=== PATIENT | female | born 1950 | race Caucasian/White ===

== ENCOUNTER → 2019-02-15 | Outpatient (CLI) | payer MEDICARE, OTHER ==
[~2019-02-15] MED LIST: AMBIEN 5 MG TABL5 M1 PO; KEFLEX500 MG PO; TRIAMCINOLONE A15 G1 TP; ZYRTEC10 MG PO
== END ==
LOC: M.RAD 10:00
DX: Z12.31 Encounter for screening mammogram for malignant neoplasm of breast (principal)

== ENCOUNTER → 2019-03-22 | Outpatient (CLI) | payer MEDICARE, OTHER | LOC: M.ULTRA 10:13 | DX: N63.10 Unspecified lump in the right breast, unspecified quadrant (principal); N63.20 Unspecified lump in the left breast, unspecified quadrant ==